=== PATIENT | female | born 1990 | race Caucasian/White ===

== ENCOUNTER → 2018-07-04 | Outpatient (CLI) | payer BC ==
[2018-07-04 12:28] LABS: HCT 36.6 % (34.0-46.0); HGB 12.1 gm/dL (11.4-16.0); MCH 32.3 pg (25.0-35.0); MCV 97.9 fL (80.0-100.0); Mean Platelet Volume 7.1; Platelet Count 349 k/uL (150-450); RBC 3.73 m/uL (3.80-5.40); RDW 13.9 % (11.5-15.5); WBC 14.7 k/uL (3.8-10.6)
== END | disposition home or self-care (01) ==
LOC: LABWHC1 11:28
PROVIDERS: ATTEND Obstetrics & Gynecology
DX: Z34.02 Encounter for supervision of normal first pregnancy, second trimester (principal); Z3A.17 17 weeks gestation of pregnancy
CPT/HCPCS: 36415; 85027; 86762; 86780; 86850; 86900; 86901; 87086; 87340

== ENCOUNTER → 2018-08-07 | Outpatient (CLI) | payer BC | END | disposition home or self-care (01) | LOC: LABWHC1 15:06 | PROVIDERS: ATTEND Obstetrics & Gynecology | DX: Z36.9 Encounter for antenatal screening, unspecified (principal) | CPT/HCPCS: 36415; 82950 ==

== ENCOUNTER 2018-11-10 18:23 | Inpatient (IN) | payer OTHER ==
[2018-11-10] MEDS ORDERED: METHYLERGONOVINE 0.2 MG/ML 1 ML AMP IM PRN (19:57)
[2018-11-10] MEDS ORDERED: LIDOCAINE 0.5% (PF) 5 MG/ML (50 ML SDV) SQ PRN (19:57)
[2018-11-10] MEDS ORDERED: AMPICILLIN 2,000 MG in SODIUM CHLORIDE 0.9% 100 ML IVPB STA (19:57)
[2018-11-10] MEDS ORDERED: TERBUTALINE 1 MG/ML VIAL SQ PRN (19:57)
[2018-11-10] MEDS ORDERED: CARBOPROST TROMETHAMINE 250 MCG/ML 1 ML AMP IM PRN (19:57)
[2018-11-10] MEDS ORDERED: OXYTOCIN 10 UNIT/ML 1 ML VIAL IM PRN (19:57)
[2018-11-10] MEDS ORDERED: BUTORPHANOL 1 MG/ML 1 ML VIAL IV PRN (19:58)
[2018-11-10 20:15] VITALS: BMI 37.5
[2018-11-10] MEDS: LACTATED RINGERS 1,000 ML IV SCH ×2 (20:21→20:52)
[2018-11-10 20:30] LABS: Basophils % (A) 0 %; Eosinophils # (A) 0.1 k/uL (0-0.7); Eosinophils % (A) 1 %; HCT 36.6 % (34.0-46.0); HGB 11.8 gm/dL (11.4-16.0); Lymphocytes # (A) 2.5 k/uL (1.0-4.8); Lymphocytes % (A) 15 %; MCH 31.9 pg (25.0-35.0); MCHC 32.2 g/dL (31.0-37.0); Mean Platelet Volume 7.5; Monocytes # (A) 0.6 k/uL (0-1.0); Monocytes % (A) 4 %; Neutrophils # (A) 12.8 k/uL (1.3-7.7); Neutrophils % (A) 78 %; Platelet Count 372 k/uL (150-450); RDW 14.2 % (11.5-15.5); WBC 16.4 k/uL (3.8-10.6)
[2018-11-10] MEDS ORDERED: ROPIVACAINE 5MG/ML 20ML VIAL ONE (20:47)
[2018-11-10] MEDS ORDERED: SODIUM CHLORIDE 0.9% 100 ML BAG ONE (20:47)
[2018-11-10] MEDS ORDERED: fentaNYL (PF) 50 MCG/ML 5 ML AMP ONE (20:47)
[2018-11-11] MEDS: LACTATED RINGERS 1,000 ML IV SCH ×2 (00:17→05:40)
[2018-11-11] MEDS: AMPICILLIN 1,000 MG in SODIUM CHLORIDE 0.9% 50 ML IVPB SCH ×3 (00:18→07:43)
[2018-11-11] MEDS ORDERED: ROPIVACAINE 100 MG, fentaNYL (PF) 200 MCG in SODIUM CHLORIDE 0.9% 76 ML EPIDURAL ONE (02:21)
[2018-11-11] MEDS: OXYTOCIN 20 UNITS/1000 ML NS 1,000 ML IV SCH ×2 (04:30→20:29)
[2018-11-11] MEDS ORDERED: SIMETHICONE 80 MG CHEWABLE PO PRN (09:08)
[2018-11-11] MEDS ORDERED: diphenhydrAMINE 50 MG CAP PO PRN (09:08)
[2018-11-11] MEDS ORDERED: diphenhydrAMINE 25 MG CAP PO PRN (09:08)
[2018-11-11] MEDS ORDERED: diphenhydrAMINE 50 MG/ML 1 ML VIAL IVP PRN ×2 (09:08)
[2018-11-11] MEDS ORDERED: HYDROCORTISONE 2.5% RECTAL CREAM 30 GM TUBE RECTAL PRN (09:08)
[2018-11-11] MEDS ORDERED: ACETAMINOPHEN TAB 325 MG TAB PO PRN (09:08)
[2018-11-11] MEDS ORDERED: BENZOCAINE/MENTHOL SPRAY 1 GM/SPRAY AEROSOL TOPICAL PRN (09:08)
[2018-11-11] MEDS ORDERED: WITCH HAZEL 1 EACH MED..PAD TOPICAL PRN (09:08)
[2018-11-11] MEDS ORDERED: ZOLPIDEM 5 MG TAB PO PRN (09:08)
[2018-11-11] MEDS ORDERED: LANOLIN CREAM 5 GM TUBE TOPICAL PRN (09:08)
--- NOTE | 2018-11-11 09:08 | P.HPOB ---
History of Present Illness H&P Date: 11/11/18 Chief Complaint: IUP @ 400/7 week, active labor This is a 28yo at 40 0/7 weeks that presented to labor and delivery with complaints of contractions approximately 5 minutes apart. Patient denies vaginal bleeding or loss of fluid. She notes good movement. She is a known patient of Dr. Preciado. It has been receiving routine care since the first trimester. Patient is a known tobacco user and noted to be group beta strep positive on screening at 36 weeks. On blood work a blood type of A+, rubella immune, RPR nonreactive, hepatitis B surface antigen negative, drug screen on 04/18 was positive for THC. As stated above group beta strep was positive on 10/10/2018. Review of Systems Constitutional: Denies chills, Denies fatigue, Denies fever Cardiovascular: Reports leg edema Respiratory: Denies cough, Denies dyspnea Gastrointestinal: Denies diarrhea, Denies nausea, Denies vomiting Genitourinary: Reports Past Medical History Past Medical History: No Reported History History of Any Multi-Drug Resistant Organisms: None Reported Past Surgical History: Tonsillectomy Additional Past Surgical History / Comment(s): [place] tooth extraction Past Anesthesia/Blood Transfusion Reactions: No Reported Reaction Past Psychological History: No Psychological Hx Reported Smoking Status: Current every day smoker Past Alcohol Use History: None Reported Past Drug Use History: Marijuana Additional Drug Use History / Comment(s): THC use during - Past Family History Mother Family Medical History: No Reported History Medications and Allergies Home Medications Medication Instructions Recorded Confirmed Type Pnv,Calcium 72/Iron/Folic Acid 1 each PO DAILY 11/10/18 11/10/18 History [ Plus Tablet] Allergies Allergy/AdvReac Type Severity Reaction Status Date / Time No Known Allergies Allergy Verified 11/10/18 18:32 Exam Osteopathic Statement: *. No significant issues noted on an osteopathic structural exam other than those noted in the History and Physical/Consult. Vital Signs Temp Pulse Resp BP Pulse Ox 11/10/18 20:08 98.1 F 83 16 131/82 99 11/10/18 20:00 98.1 F 83 16 131/82 99 11/10/18 18:33 97.6 F 78 16 124/70 Intake and Output 11/10/18 11/11/18 11/11/18 22:59 06:59 14:59 Intake Total 1000 1000 Balance 1000 1000 Intake: Intake, IV Titration 1000 1000 Amount Lactated Ringers 1,000 ml 1000 1000 @ 125 mls/hr IV .Q8H [facility] Rx#:[id number] Other: # Voids 1 Weight 96.162 kg Targeted physical exam was performed in general this is a well-nourished well- developed female in no acute distress. She notes nonlabored breathing and lungs are clear to auscultation bilaterally, heart regular rate and rhythm, lower extremity edema is noted, on initial cervical exam she was /-2 amniotomy was performed and clear fluid was obtained without difficulty. heart tones at that time were reassuring with moderate variability. Results Result Diagrams: 11/10/18 20:20 Abnormal Lab Results - Last 24 Hours (Table) 11/10/18 Range/Units 20:20 WBC 16.4 H (3.8-10.6) k/uL RBC 3.70 L (3.80-5.40) m/uL Neutrophils # 12.8 H (1.3-7.7) k/uL Assessment and Plan (1) Term Current Visit: Yes Status: Acute Code(s): Z34.80 - ENCOUNTER FOR SUPRVSN OF NORMAL , UNSP TRIMESTER SNOMED Code(s): 21927914 (2) Positive GBS test Current Visit: Yes Status: Acute Code(s): B95.1 - STREPTOCOCCUS, GROUP B, CAUSING DISEASES CLASSD ELSWHR SNOMED Code(s): 6386799769641 (3) Marijuana abuse Current Visit: Yes Status: Acute Code(s): F12.10 - CANNABIS ABUSE, UNCOMPLICATED SNOMED Code(s): 71006293 (4) Tobacco abuse Current Visit: Yes Status: Acute Code(s): Z72.0 - TOBACCO USE SNOMED Code( s): 758677675 Plan: Patient minutes labor and delivery for expectant management, IV antibiotics are used given her age group beta strep positive status. Anticipate spontaneous vaginal delivery.
--- NOTE | 2018-11-11 09:11 | P.PROBDLV ---
Vaginal Delivery Note - . Vaginal Delivery Note: This is a 28-year-old 1 para 0 at 40-0/7 weeks with an estimated due date of 112 that presented to labor and delivery with complaints of painful contractions. Patient was noted to be 4 cm 80 and -2 station. Patient was requesting epidural at the time. Patient was admitted to labor and delivery IV antibiotics were given for her group beta strep positive status. Patient progressed through labor eventually getting an epidural, placed by anesthesia without difficulty. Artificial rupture of membranes was performed at 342 clear fluid was obtained. Patient progressed through labor becoming complete and began pushing. She had a normal spontaneous vaginal delivery of a viable female infant at 854, weight of 7 lbs. 5 oz., Apgars of 9 and 9 at one and 5 minutes respectively. After a two-minute delayed the umbilical cord was doubly clamped and cut and the infant was handed off to mom. The placenta was delivered spontaneously intact with a three-vessel cord being noted. On inspection the patient's vaginal vault bilateral labial lacerations that were hemostatic were noted. No perineal lacerations were noted. The patient's bladder was drained with a red rubber catheter for approximately 100 mL of clear yellow urine. The uterus was noted to be firm and below the umbilicus at this time. Estimated blood loss 300 mL. Patient and tolerated delivery well and are resting comfortably.
[2018-11-11] MEDS ORDERED: OXYTOCIN 20 UNITS/1000 ML NS 1,000 ML IV SCH (09:15)
[2018-11-11] MEDS: IBUPROFEN 600 MG TAB PO PRN ×2 (10:56→23:21)
[2018-11-11] MEDS: SENNOSIDES-DOCUSATE SODIUM 1 EACH TAB PO SCH (19:35)
[2018-11-11] MEDS: PRENATAL VIT-IRON-FOLIC ACID 1 EACH CAP PO SCH (19:38)
[2018-11-11 20:18] VITALS: RESP 16
[2018-11-12 07:04] LABS: Basophils % (A) 0 %; Eosinophils # (A) 0.1 k/uL (0-0.7); Eosinophils % (A) 1 %; HCT 30.8 % (34.0-46.0); HGB 10.6 gm/dL (11.4-16.0); Lymphocytes # (A) 2.4 k/uL (1.0-4.8); Lymphocytes % (A) 17 %; MCH 33.6 pg (25.0-35.0); MCHC 34.3 g/dL (31.0-37.0); Mean Platelet Volume 8.1; Monocytes # (A) 0.6 k/uL (0-1.0); Monocytes % (A) 4 %; Neutrophils # (A) 11.3 k/uL (1.3-7.7); Neutrophils % (A) 77 %; Platelet Count 273 k/uL (150-450); RBC 3.15 m/uL (3.80-5.40); RDW 14.2 % (11.5-15.5); WBC 14.8 k/uL (3.8-10.6)
[2018-11-12 07:33] VITALS: BP 123/75; PULSE 70; TEMP 97.7
[2018-11-12] MEDS: SENNOSIDES-DOCUSATE SODIUM 1 EACH TAB PO SCH (08:48)
[2018-11-12] MEDS: PRENATAL VIT-IRON-FOLIC ACID 1 EACH CAP PO SCH (08:49)
--- NOTE | 2018-11-12 09:38 | P.DS ---
Providers Date of admission: 11/10/18 19:50 Expected date of discharge: 11/12/18 Attending physician: Rea Preciado Primary care physician: Stated None - Discharge Diagnosis(es) (1) Term Current Visit: Yes Status: Acute (2) Positive GBS test Current Visit: Yes Status: Acute (3) Marijuana abuse Current Visit: Yes Status: Acute (4) Tobacco abuse Current Visit: Yes Status: Acute Hospital Course: This is a pleasant 28-year-old 1 para 0 at 40-0/7 weeks that presented to labor and delivery in active labor. Patient noted painful contractions and was 4/80/-2 upon admission. Patient was uncomfortable requesting an epidural. Patient progressed through labor eventually amniotomy was performed and clear fluid was obtained. Patient progressed through labor began pushing and had a normal spontaneous vaginal delivery at 854, weight of 7 lbs. 5 oz. with Apgars of 9 and 9 at one and 5 minutes respectively. Patient's course has been uneventful. She is ambulating and voiding without difficulty on this postop day #1 and wishes discharge home. Patient Condition at Discharge: Good Plan - Discharge Summary New Discharge Prescriptions: No Action Pnv,Calcium 72/Iron/Folic Acid [ Plus Tablet] 1 each PO DAILY Discharge Medication List Pnv,Calcium 72/Iron/Folic Acid [ Plus Tablet] 1 each PO DAILY 11/10/18 [ History] Follow up Appointment(s)/Referral(s): Rea Preciado MD [STAFF PHYSICIAN] - 6 Weeks Patient Instructions/Handouts: Vaginal Delivery (DC), Vaginal Delivery (GEN) Discharge Disposition: HOME SELF-CARE
== END 2018-11-12 11:34 | disposition home or self-care (01) | DRG 807 ==
LOC: FBPOP 18:23 → 4FBP 19:50
PROVIDERS: ADMIT Obstetrics & Gynecology Obstetrics; ATTEND Obstetrics & Gynecology
PROC: 00HU33Z Insertion of Infusion Device into Spinal Canal, Percutaneous Approach (ICD-10-PCS; 2018-11-10)
PROC: 3E0R3BZ Introduction of Anesthetic Agent into Spinal Canal, Percutaneous Approach (ICD-10-PCS; 2018-11-10)
PROC: 10E0XZZ Delivery of Products of Conception, External Approach (ICD-10-PCS; principal; 2018-11-11)
PROC: 0HQ9XZZ Repair Perineum Skin, External Approach (ICD-10-PCS; 2018-11-11)
DX: O99.824 Streptococcus B carrier state complicating childbirth (principal); Z37.0 Single live birth; O70.0 First degree perineal laceration during delivery; O99.334 Smoking (tobacco) complicating childbirth; F17.200 Nicotine dependence, unspecified, uncomplicated; O99.321 Drug use complicating pregnancy, first trimester; F12.90 Cannabis use, unspecified, uncomplicated; Z3A.40 40 weeks gestation of pregnancy; Z79.899 Other long term (current) drug therapy
CPT/HCPCS: 59025; 85025; 86850; 86900; 86901; 99213

== ENCOUNTER 2021-09-01 06:52 | Emergency (ER) | payer OTHER ==
[2021-09-01] MEDS ORDERED: ACETAMINOPHEN TAB 500 MG TAB PO STA (07:20)
[2021-09-01] MEDS ORDERED: SODIUM CHLORIDE 0.9% 1,000 ML IV STA ×2 (07:22)
[2021-09-01] MEDS ORDERED: IBUPROFEN 600 MG TAB PO STA (07:25)
[2021-09-01] MEDS ORDERED: MORPHINE SULFATE 4 MG/ML SYRINGE IVP STA (07:25)
--- NOTE | 2021-09-01 07:27 | ED ---
General Adult HPI - General Chief complaint: Abdominal Pain Stated complaint: Abdominal and lower back pain Time Seen by Provider: 09/01/21 07:12 Source: patient, RN notes reviewed Mode of arrival: ambulatory - History of Present Illness Initial comments: 30-year-old female presents to the emergency room for a chief complaint of abdominal pain. Patient states 2-3 days ago she started to have lower back pain that radiates around to her lower abdomen. Patient states she is having pain with urination. She is prone to UTIs. Patient states she has had chills on and off but has not checked her temperature. She denies upper respiratory symptoms.Patient has no other complaints at this time including shortness of breath, chest pain, nausea or vomiting, headache, or visual changes. - Related Data Previous Rx's Medication Instructions Recorded Ondansetron [Zofran ODT] 4 mg PO Q8HR PRN #15 tab 09/01/21 Sulfamethox-Tmp 800-160Mg [Bactrim 1 tab PO Q12HR #28 tab 09/01/21 DS 800-160 mg] Allergies Allergy/AdvReac Type Severity Reaction Status Date / Time No Known Allergies Allergy Verified 09/01/21 07:34 Review of Systems ROS Statement: Those systems with pertinent positive or pertinent negative responses have been documented in the HPI. ROS Other: All systems not noted in ROS Statement are negative. Past Medical History Past Medical History: No Reported History History of Any Multi-Drug Resistant Organisms: None Reported Past Surgical History: Tonsillectomy Additional Past Surgical History / Comment(s): [place] tooth extraction Past Anesthesia/Blood Transfusion Reactions: No Reported Reaction Past Psychological History: No Psychological Hx Reported Smoking Status: Current every day smoker Past Alcohol Use History: Occasional Past Drug Use History: Marijuana - Past Family History Mother Family Medical History: No Reported History General Exam General appearance: alert, in no apparent distress Head exam: Present: atraumatic Eye exam: Present: normal appearance, PERRL, EOMI. Absent: scleral icterus, conjunctival injection ENT exam: Present: normal exam, mucous membranes moist Neck exam: Present: normal inspection, full ROM. Absent: tenderness Respiratory exam: Present: normal lung sounds bilaterally. Absent: respiratory distress, wheezes Cardiovascular Exam: Present: regular rate, normal rhythm, normal heart sounds GI/Abdominal exam: Present: soft, normal bowel sounds. Absent: distended, tenderness Back exam: Present: CVA tenderness (R). Absent: CVA tenderness (L), vertebral tenderness Course Vital Signs 09/01/21 06:55 Temperature 101.2 F H Pulse Rate 150 H Respiratory 20 Rate Blood Pressure 126/78 O2 Sat by Pulse 99 Oximetry Medical Decision Making - Medical Decision Making Patient presents with a fever of 101. Heart rate was initially recorded as 150 however I checked her heart rate is sooner she was in the room and is in the 120s. She was given Motrin and Tylenol and her heart rate improved to 89. Patient does have some right CVA tenderness. No significant abdominal tenderness. CBC does show leukocytosis of 12.6. CMP is unremarkable. Lactic acid is normal. Urinalysis does show evidence of urinary tract infection, suspect pyelonephritis. CT was obtained to rule out septic stone. No renal calculi seen bilaterally. There is right perinephric fat stranding which I suspect is related to reflux with pyelonephritis clinically. Patient was treated with 2 L of normal saline and 2 g of Rocephin. Discussed inpatient versus outpatient management with patient. Patient prefers to go home. Pain is controlled. Tolerating oral intake. At this time we can discharge her home with Bactrim for 14 days and Zofran. Discussed strict return parameters with her. She is aware that if she is getting worse, or is unable to keep down fluids or antibiotics she needs to immediately return to the emergency room. - Lab Data Result diagrams: 09/01/21 07:42 09/01/21 07:42 Lab Results 09/01/21 09/01/21 09/01/21 Range/Units 07:42 07:42 07:42 WBC 12.6 H (3.8-10.6) k/uL RBC 4.69 (3.80-5.40) m/uL Hgb 15.2 (11.4-16.0) gm/dL Hct 44.8 (34.0-46.0) % MCV 95.3 (80.0-100.0) fL MCH 32.3 (25.0-35.0) pg MCHC 33.9 (31.0-37.0) g/dL RDW 13.1 (11.5-15.5) % Plt Count 337 (150-450) k/uL MPV 7.8 Neutrophils % 81 % Lymphocytes % 11 % Monocytes % 6 % Eosinophils % 1 % Basophils % 0 % Neutrophils # 10.2 H (1.3-7.7) k/uL Lymphocytes # 1.4 (1.0-4.8) k/uL Monocytes # 0.7 (0-1.0) k/uL Eosinophils # 0.1 (0-0.7) k/uL Basophils # 0.1 (0-0.2) k/uL Sodium 133 L (137-145) mmol/L Potassium 4.1 (3.5-5.1) mmol/L Chloride 101 (98-107) mmol/L Carbon Dioxide 20 L (22-30) mmol/L Anion Gap 12 mmol/L BUN 5 L (7-17) mg/dL Creatinine 0.75 (0.52-1.04) mg/dL Est GFR (CKD-EPI)AfAm >90 (>60 ml/min/1.73 sqM) Est GFR (CKD-EPI)NonAf >90 (>60 ml/min/1.73 sqM) Glucose 122 H (74-99) mg/dL Plasma Lactic Acid Lucas (0.7-2.0) mmol/L Calcium 9.7 (8.4-10.2) mg/dL Total Bilirubin 0.7 (0.2-1.3) mg/dL AST 20 (14-36) U/L ALT 15 (4-34) U/L Alkaline Phosphatase 147 H (38-126) U/L Total Protein 8.0 (6.3-8.2) g/dL Albumin 4.2 (3.5-5.0) g/dL Urine Color Yellow Urine Appearance Turbid H (Clear) Urine pH 6.0 (5.0-8.0) Ur Specific [place] 1.016 (1.001-1.035) Urine Protein 2+ H (Negative) Urine Glucose (UA) Negative (Negative) Urine Ketones Negative (Negative) Urine Blood Moderate H (Negative) Urine Nitrite Negative (Negative) Urine Bilirubin Negative (Negative) Urine Urobilinogen <2.0 (<2.0) mg/dL Ur Leukocyte Esterase Large H (Negative) Urine RBC 49 H (0-5) /hpf Urine WBC >182 H (0-5) /hpf Urine WBC Clumps Many H (None) /hpf Ur Squamous Epith Cells 18 H (0-4) /hpf Urine Bacteria Few H (None) /hpf Urine Mucus Many H (None) /hpf Urine HCG, Qual (Not Detectd) Coronavirus (PCR) (Not Detectd) 09/01/21 09/01/21 09/01/21 Range/Units 07:42 07:42 07:42 WBC (3.8-10.6) k/uL RBC (3.80-5.40) m/uL Hgb (11.4-16.0) gm/dL Hct (34.0-46.0) % MCV (80.0-100.0) fL MCH (25.0-35.0) pg MCHC (31.0-37.0) g/dL RDW (11.5-15.5) % Plt Count (150-450) k/uL MPV Neutrophils % % Lymphocytes % % Monocytes % % Eosinophils % % Basophils % % Neutrophils # (1.3-7.7) k/uL Lymphocytes # (1.0-4.8) k/uL Monocytes # (0-1.0) k/uL Eosinophils # (0-0.7) k/uL Basophils # (0-0.2) k/uL Sodium (137-145) mmol/L Potassium (3.5-5.1) mmol/L Chloride (98-107) mmol/L Carbon Dioxide (22-30) mmol/L Anion Gap mmol/L BUN (7-17) mg/dL Creatinine (0.52-1.04) mg/dL Est GFR (CKD-EPI)AfAm (>60 ml/min/1.73 sqM) Est GFR (CKD-EPI)NonAf (>60 ml/min/1.73 sqM) Glucose (74-99) mg/dL Plasma Lactic Acid Lucas 1.1 (0.7-2.0) mmol/L Calcium (8.4-10.2) mg/dL Total Bilirubin (0.2-1.3) mg/dL AST (14-36) U/L ALT (4-34) U/L Alkaline Phosphatase (38-126) U/L Total Protein (6.3-8.2) g/dL Albumin (3.5-5.0) g/dL Urine Color Urine Appearance (Clear) Urine pH (5.0-8.0) Ur Specific [place] (1.001-1.035) Urine Protein (Negative) Urine Glucose (UA) (Negative) Urine Ketones (Negative) Urine Blood (Negative) Urine Nitrite (Negative) Urine Bilirubin (Negative) Urine Urobilinogen (<2.0) mg/dL Ur Leukocyte Esterase (Negative) Urine RBC (0-5) /hpf Urine WBC (0-5) /hpf Urine WBC Clumps (None) /hpf Ur Squamous Epith Cells (0-4) /hpf Urine Bacteria (None) /hpf Urine Mucus (None) /hpf Urine HCG, Qual Not Detected (Not Detectd) Coronavirus (PCR) Not Detected (Not Detectd) Disposition Clinical Impression: Pyelonephritis Disposition: HOME SELF-CARE Condition: Good Instructions (If sedation given, give patient instructions): Kidney Infection (ED) Additional Instructions: Please take antibiotic as directed. Take Zofran as needed for nausea. If you're having worsening symptoms or you are not able to tolerate drinking fluids or keeping down your antibiotics you need to return immediately to the emergency room. Prescriptions: Sulfamethox-Tmp 800-160Mg [Bactrim DS 800-160 mg] 1 tab PO Q12HR #28 tab Ondansetron [Zofran ODT] 4 mg PO Q8HR PRN #15 tab PRN Reason: Nausea Is patient prescribed a controlled substance at d/c from ED?: No Referrals: Felix Victor MD [REFERRING] - 1-2 days Time of Disposition: 10:20
[2021-09-01 08:37] LABS: Appearance,Urine Turbid (Clear); Bacteria,Urine Few /hpf; Bilirubin,Urine Negative (Negative); Blood,Urine Moderate (Negative); Color,Urine Yellow; Glucose,Urine (UA) Negative (Negative); Ketones,Urine Negative (Negative); Leukocyte Esterase,Urine Large (Negative); Mucus,Urine Many /hpf; Nitrite,Urine Negative (Negative); Protein,Urine 2+ (Negative); RBC,Urine 49 /hpf (0-5); Specific Gravity,Urine 1.016 (1.001-1.035); Squamous Epithelial Cell,Urine 18 /hpf (0-4); Urobilinogen,Urine <2.0 mg/dL (<2.0); WBC,Urine >182 /hpf (0-5)
[2021-09-01 08:50] LABS: Basophils # (A) 0.1 k/uL (0-0.2); Basophils % (A) 0 %; Eosinophils # (A) 0.1 k/uL (0-0.7); Eosinophils % (A) 1 %; HCT 44.8 % (34.0-46.0); HGB 15.2 gm/dL (11.4-16.0); Lymphocytes # (A) 1.4 k/uL (1.0-4.8); Lymphocytes % (A) 11 %; MCH 32.3 pg (25.0-35.0); MCHC 33.9 g/dL (31.0-37.0); MCV 95.3 fL (80.0-100.0); Mean Platelet Volume 7.8; Monocytes # (A) 0.7 k/uL (0-1.0); Monocytes % (A) 6 %; Neutrophils # (A) 10.2 k/uL (1.3-7.7); Neutrophils % (A) 81 %; Platelet Count 337 k/uL (150-450); RBC 4.69 m/uL (3.80-5.40); RDW 13.1 % (11.5-15.5); WBC 12.6 k/uL (3.8-10.6)
[2021-09-01] MEDS ORDERED: cefTRIAXone IN SWFI 1,000 MG/10 ML SYRINGE IVP STA (09:14)
[2021-09-01 09:16] LABS: ALT 15 U/L (4-34); AST 20 U/L (14-36); African American GFR (CKD) >90 (>60 ml/min/1.73 sqM); Albumin 4.2 g/dL (3.5-5.0); Alkaline Phosphatase 147 U/L (38-126); Anion Gap 12 mmol/L; Blood Urea Nitrogen 5 mg/dL (7-17); Calcium 9.7 mg/dL (8.4-10.2); Carbon Dioxide 20 mmol/L (22-30); Chloride 101 mmol/L (98-107); Glucose 122 mg/dL (74-99); Non-African American GFR(CKD) >90 (>60 ml/min/1.73 sqM); Potassium 4.1 mmol/L (3.5-5.1); Sodium 133 mmol/L (137-145); Total Bilirubin 0.7 mg/dL (0.2-1.3)
--- NOTE | 2021-09-01 09:44 | CT ---
EXAMINATION TYPE: CT abdomen pelvis wo con DATE OF EXAM: 09/01/2021 HISTORY: Right flank pain CT DLP: 665.2 mGycm. Automated Exposure Control for Dose Reduction was Utilized. TECHNIQUE: CT scan of the abdomen and pelvis is performed without oral or IV contrast. COMPARISON: NONE FINDINGS: Within the limitations of a non-contrast study, the following observations are made. LUNG BASES: Focal linear scarring in the lingula axial images 8 through 10. LIVER/GB: Some heterogeneity in the liver. No suspicious focal mass or ductal dilatation. PANCREAS: No significant abnormality is seen. SPLEEN: No significant abnormality is seen. ADRENALS: No significant abnormality is seen. KIDNEYS: No nephrolithiasis bilaterally. No left-sided hydronephrosis. Mild to moderate right-sided p erinephric fat stranding and mild to minimal asymmetric right-sided hydronephrosis. No obstructing ca lculus clearly seen. No intraluminal calculus in the bladder. BOWEL: Prominent fluid filled small bowel loop right lower quadrant. No greater than 3.0 cm dilatatio n. No suspicious small or large bowel dilatation. Terminal ileum appears within normal limits. Mild t o moderate fecal prominence in the right and transverse colon. GENITAL ORGANS: Anteverted uterus. Ovaries symmetric and normal in size axial image 112. LYMPH NODES: No greater than 1cm abdominal or pelvic lymph nodes are appreciated. OSSEOUS STRUCTURES: Slight scoliotic curvature or positioning. Some facet arthropathy lower lumbar sp ine. Mild to moderate acetabular spurring and axial joint space loss in both hips. OTHER: No significant additional abnormality is seen. IMPRESSION: 1. Overall nonspecific but favor a nonobstructive bowel gas pattern. Mild to moderate proximal coloni c fecal stasis. 2. No renal calculi seen bilaterally. Asymmetric mild to moderate right perinephric fat stranding and mild to minimal right-sided hydronephrosis could reflect product of recently passed kidney stone. Re flux with pyelonephritis would be in differential. Correlate clinically.
[2021-09-01 10:45] VITALS: BP 111/73; PULSE 89; RESP 18; TEMP 97.6
== END 2021-09-01 10:41 | disposition home or self-care (01) ==
LOC: EC 06:52
DX: N12 Tubulo-interstitial nephritis, not specified as acute or chronic (principal); Z20.822 Contact with and (suspected) exposure to COVID-19; F17.200 Nicotine dependence, unspecified, uncomplicated; F12.90 Cannabis use, unspecified, uncomplicated
CPT/HCPCS: 96374 ×2; 96375 ×2; 96361 ×2; 99284 ×2; 36415; 80053; 83605; 85025; 81001; 81025; 87040; 87086; 87077; 87186; 87635; 74176; J2270; J0696

== ENCOUNTER 2021-09-01 23:59 | Observation (INO) | payer OTHER ==
[2021-09-02] MEDS ORDERED: SODIUM CHLORIDE 0.9% 2,000 ML IV STA (01:24)
[2021-09-02] MEDS ORDERED: ONDANSETRON 4 MG/2 ML VIAL IVP STA (01:24)
[2021-09-02 02:02] LABS: Basophils # (A) 0.1 k/uL (0-0.2); Basophils % (A) 1 %; Eosinophils # (A) 0.1 k/uL (0-0.7); Eosinophils % (A) 1 %; HCT 39.8 % (34.0-46.0); HGB 13.4 gm/dL (11.4-16.0); Lymphocytes # (A) 1.9 k/uL (1.0-4.8); Lymphocytes % (A) 15 %; MCH 31.8 pg (25.0-35.0); MCHC 33.7 g/dL (31.0-37.0); MCV 94.3 fL (80.0-100.0); Mean Platelet Volume 7.6; Monocytes # (A) 0.9 k/uL (0-1.0); Monocytes % (A) 7 %; Neutrophils # (A) 9.9 k/uL (1.3-7.7); Neutrophils % (A) 76 %; Platelet Count 320 k/uL (150-450); RBC 4.22 m/uL (3.80-5.40); RDW 13.6 % (11.5-15.5); WBC 13.1 k/uL (3.8-10.6)
--- NOTE | 2021-09-02 02:07 | ED ---
Abdominal Pain HPI - General Chief Complaint: Abdominal Pain Stated Complaint: Revisit kidney pain Time Seen by Provider: 09/02/21 01:23 Source: patient, RN notes reviewed Mode of arrival: ambulatory Limitations: no limitations - History of Present Illness Initial Comments: This a 30-year-old female presents emergency Department with chief complaint of right flank pain. Patient states she was seen here yesterday morning diagnosed with a kidney infection. Patient was sent home with antiemetics states she cannot tolerate oral intake she's been vomiting, worsening pain. Patient's had urinary symptoms for several days but was not improving which brought her to emergency department. Patient did have prior CAT scan. Patient states the pain is radiating up into her shoulder, across her abdomen. - Related Data Previous Rx's Medication Instructions Recorded Ondansetron [Zofran ODT] 4 mg PO Q8HR PRN #15 tab 09/01/21 Sulfamethox-Tmp 800-160Mg [Bactrim 1 tab PO Q12HR #28 tab 09/01/21 DS 800-160 mg] Allergies Allergy/AdvReac Type Severity Reaction Status Date / Time No Known Allergies Allergy Verified 09/02/21 00:06 Review of Systems ROS Statement: Those systems with pertinent positive or pertinent negative responses have been documented in the HPI. ROS Other: All systems not noted in ROS Statement are negative. Past Medical History Past Medical History: No Reported History History of Any Multi-Drug Resistant Organisms: None Reported Past Surgical History: Tonsillectomy Additional Past Surgical History / Comment(s): [place] tooth extraction Past Anesthesia/Blood Transfusion Reactions: No Reported Reaction Past Psychological History: No Psychological Hx Reported Smoking Status: Current every day smoker Past Alcohol Use History: Occasional Past Drug Use History: Marijuana - Past Family History Mother Family Medical History: No Reported History General Exam Limitations: no limitations General appearance: alert, in no apparent distress Head exam: Present: atraumatic, normocephalic, normal inspection Eye exam: Present: normal appearance, PERRL, EOMI. Absent: scleral icterus, conjunctival injection, periorbital swelling ENT exam: Present: normal exam, mucous membranes moist Neck exam: Present: normal inspection, full ROM. Absent: tenderness, meningismus, lymphadenopathy Respiratory exam: Present: normal lung sounds bilaterally. Absent: respiratory distress, wheezes, rales, rhonchi, stridor Cardiovascular Exam: Present: regular rate, normal rhythm, normal heart sounds. Absent: systolic murmur, diastolic murmur, rubs, gallop, clicks GI/Abdominal exam: Present: soft, tenderness, normal bowel sounds. Absent: distended, guarding, rebound, rigid Back exam: Present: CVA tenderness (R). Absent: CVA tenderness (L) Neurological exam: Present: alert, oriented X3 Skin exam: Present: warm, dry, intact, normal color. Absent: rash Course Vital Signs 09/02/21 00:02 Temperature 99.0 F Pulse Rate 105 H Respiratory 20 Rate Blood Pressure 126/70 O2 Sat by Pulse 99 Oximetry Medical Decision Making - Medical Decision Making 22-year-old female presented for right flank pain. Patient has acute pyelonephritis. Patient did prior CT which was abnormal. Patient is unable tolerate her oral antibiotics will be admitted for IV antibiotics, IV hydration, antiemetics, pain control. - Lab Data Result diagrams: 09/02/21 01:43 09/02/21 01:43 Lab Results 09/02/21 09/02/21 09/02/21 Range/Units 01:43 01:43 01:43 WBC 13.1 H (3.8-10.6) k/uL RBC 4.22 (3.80-5.40) m/uL Hgb 13.4 (11.4-16.0) gm/dL Hct 39.8 (34.0-46.0) % MCV 94.3 (80.0-100.0) fL MCH 31.8 (25.0-35.0) pg MCHC 33.7 (31.0-37.0) g/dL RDW 13.6 (11.5-15.5) % Plt Count 320 (150-450) k/uL MPV 7.6 Neutrophils % 76 % Lymphocytes % 15 % Monocytes % 7 % Eosinophils % 1 % Basophils % 1 % Neutrophils # 9.9 H (1.3-7.7) k/uL Lymphocytes # 1.9 (1.0-4.8) k/uL Monocytes # 0.9 (0-1.0) k/uL Eosinophils # 0.1 (0-0.7) k/uL Basophils # 0.1 (0-0.2) k/uL Sodium 131 L (137-145) mmol/L Potassium 4.1 (3.5-5.1) mmol/L Chloride 104 (98-107) mmol/L Carbon Dioxide 20 L (22-30) mmol/L Anion Gap 7 mmol/L BUN 5 L (7-17) mg/dL Creatinine 0.70 (0.52-1.04) mg/dL Est GFR (CKD-EPI)AfAm >90 (>60 ml/min/1.73 sqM) Est GFR (CKD-EPI)NonAf >90 (>60 ml/min/1.73 sqM) Glucose 117 H (74-99) mg/dL Plasma Lactic Acid Lucas (0.7-2.0) mmol/L Calcium 8.9 (8.4-10.2) mg/dL Total Bilirubin 0.3 (0.2-1.3) mg/dL AST 20 (14-36) U/L ALT 15 (4-34) U/L Alkaline Phosphatase 130 H (38-126) U/L Total Protein 6.9 (6.3-8.2) g/dL Albumin 3.6 (3.5-5.0) g/dL Lipase 42 (23-300) U/L Urine Color Yellow Urine Appearance Cloudy H (Clear) Urine pH 8.0 (5.0-8.0) Ur Specific [place] 1.013 (1.001-1.035) Urine Protein 1+ H (Negative) Urine Glucose (UA) Negative (Negative) Urine Ketones Negative (Negative) Urine Blood Trace H (Negative) Urine Nitrite Negative (Negative) Urine Bilirubin Negative (Negative) Urine Urobilinogen <2.0 (<2.0) mg/dL Ur Leukocyte Esterase Large H (Negative) Urine RBC 9 H (0-5) /hpf Urine WBC 133 H (0-5) /hpf Ur Squamous Epith Cells 45 H (0-4) /hpf Urine Bacteria Moderate H (None) /hpf Urine Mucus Rare H (None) /hpf Urine HCG, Qual (Not Detectd) 09/02/21 09/02/21 Range/Units 01:43 01:43 WBC (3.8-10.6) k/uL RBC (3.80-5.40) m/uL Hgb (11.4-16.0) gm/dL Hct (34.0-46.0) % MCV (80.0-100.0) fL MCH (25.0-35.0) pg MCHC (31.0-37.0) g/dL RDW (11.5-15.5) % Plt Count (150-450) k/uL MPV Neutrophils % % Lymphocytes % % Monocytes % % Eosinophils % % Basophils % % Neutrophils # (1.3-7.7) k/uL Lymphocytes # (1.0-4.8) k/uL Monocytes # (0-1.0) k/uL Eosinophils # (0-0.7) k/uL Basophils # (0-0.2) k/uL Sodium (137-145) mmol/L Potassium (3.5-5.1) mmol/L Chloride (98-107) mmol/L Carbon Dioxide (22-30) mmol/L Anion Gap mmol/L BUN (7-17) mg/dL Creatinine (0.52-1.04) mg/dL Est GFR (CKD-EPI)AfAm (>60 ml/min/1.73 sqM) Est GFR (CKD-EPI)NonAf (>60 ml/min/1.73 sqM) Glucose (74-99) mg/dL Plasma Lactic Acid Lucas 1.2 (0.7-2.0) mmol/L Calcium (8.4-10.2) mg/dL Total Bilirubin (0.2-1.3) mg/dL AST (14-36) U/L ALT (4-34) U/L Alkaline Phosphatase (38-126) U/L Total Protein (6.3-8.2) g/dL Albumin (3.5-5.0) g/dL Lipase (23-300) U/L Urine Color Urine Appearance (Clear) Urine pH (5.0-8.0) Ur Specific [place] (1.001-1.035) Urine Protein (Negative) Urine Glucose (UA) (Negative) Urine Ketones (Negative) Urine Blood (Negative) Urine Nitrite (Negative) Urine Bilirubin (Negative) Urine Urobilinogen (<2.0) mg/dL Ur Leukocyte Esterase (Negative) Urine RBC (0-5) /hpf Urine WBC (0-5) /hpf Ur Squamous Epith Cells (0-4) /hpf Urine Bacteria (None) /hpf Urine Mucus (None) /hpf Urine HCG, Qual Not Detected (Not Detectd) Disposition Clinical Impression: Pyelonephritis, Nausea & vomiting Disposition: ADMITTED IP TO THIS HOSP Condition: Fair Referrals: Felix Victor MD [Primary Care Provider] - 1-2 days
[2021-09-02 02:09] LABS: Appearance,Urine Cloudy (Clear); Bacteria,Urine Moderate /hpf; Bilirubin,Urine Negative (Negative); Blood,Urine Trace (Negative); Color,Urine Yellow; Glucose,Urine (UA) Negative (Negative); Ketones,Urine Negative (Negative); Leukocyte Esterase,Urine Large (Negative); Mucus,Urine Rare /hpf; Nitrite,Urine Negative (Negative); Protein,Urine 1+ (Negative); RBC,Urine 9 /hpf (0-5); Specific Gravity,Urine 1.013 (1.001-1.035); Squamous Epithelial Cell,Urine 45 /hpf (0-4); Urobilinogen,Urine <2.0 mg/dL (<2.0); WBC,Urine 133 /hpf (0-5)
[2021-09-02] MEDS ORDERED: HYDROmorphone 1 MG/ML 1 ML SYRINGE IVP STA (02:17)
[2021-09-02 02:19] LABS: ALT 15 U/L (4-34); AST 20 U/L (14-36); African American GFR (CKD) >90 (>60 ml/min/1.73 sqM); Albumin 3.6 g/dL (3.5-5.0); Alkaline Phosphatase 130 U/L (38-126); Anion Gap 7 mmol/L; Blood Urea Nitrogen 5 mg/dL (7-17); Calcium 8.9 mg/dL (8.4-10.2); Carbon Dioxide 20 mmol/L (22-30); Chloride 104 mmol/L (98-107); Glucose 117 mg/dL (74-99); Lipase 42 U/L (23-300); Non-African American GFR(CKD) >90 (>60 ml/min/1.73 sqM); Potassium 4.1 mmol/L (3.5-5.1); Sodium 131 mmol/L (137-145); Total Bilirubin 0.3 mg/dL (0.2-1.3); Total Protein 6.9 g/dL (6.3-8.2)
[2021-09-02] MEDS ORDERED: NALOXONE 0.4 MG/ML 1 ML VIAL IV PRN (02:42)
[2021-09-02] MEDS ORDERED: ACETAMINOPHEN TAB 325 MG TAB PO PRN (02:42)
[2021-09-02] MEDS ORDERED: HYDROmorphone 0.5 MG/0.5 ML SYRINGE IVP PRN (02:42)
[2021-09-02] MEDS ORDERED: ONDANSETRON 4 MG/2 ML VIAL IVP PRN (02:42)
[2021-09-02] MEDS: SODIUM CHLORIDE 0.9% 1,000 ML IV SCH ×3 (03:15→17:42)
[2021-09-02] MEDS: HYDROmorphone 1 MG/ML 1 ML SYRINGE IVP PRN ×4 (06:03→17:41)
[2021-09-02] MEDS: PANTOPRAZOLE 40 MG/10 ML VIAL IV SCH (09:24)
[2021-09-02] MEDS: KETOROLAC 15 MG/ML 1 ML VIAL IVP PRN (10:50)
--- NOTE | 2021-09-02 16:09 | P.HPIM ---
History of Present Illness Patient is a 24-year-old male came in with complains of right flank pain. Patient was in any other yesterday for or dysuria fever urine cultures were obtained patient was discharged on Bactrim once she started taking Bactrim patient that started having nausea and vomiting because of which patient came to ER again. Patient was subsequently admitted for treatment of pallor nephritis. Patient was started on Rocephin. Patient urine from yesterday were significantly abnormal. Today's urine is significantly contaminated with squ amous epithelial cells. Patient does have leukocytosis and does have a costovertebral angle tenderness. REVIEW OF SYSTEMS: CONSTITUTIONAL: As mentioned in HPI HEENT: No recent visual problems or hearing problems. Denied any sore throat. CARDIOVASCULAR: No chest pain, orthopnea, PND, no palpitations, no syncope. PULMONARY: No shortness of breath, no cough, no hemoptysis. GASTROINTESTINAL: No diarrhea, no nausea, no vomiting, no abdominal pain. NEUROLOGICAL: No headaches, no weakness, no numbness. HEMATOLOGICAL: Denies any bleeding or petechiae. GENITOURINARY: As mentioned in HPI MUSCULOSKELETAL/RHEUMATOLOGICAL: Denies any joint pain, swelling, or any muscle pain. ENDOCRINE: Denies any polyuria or polydipsia. The rest of the 14-point review of systems is negative. PHYSICAL EXAMINATION: GENERAL: The patient is alert and oriented x3, not in any acute distress. Well developed, well nourished. HEENT: Pupils are round and equally reacting to light. EOMI. No scleral icterus. No conjunctival pallor. Normocephalic, atraumatic. No pharyngeal erythema. No thyromegaly. CARDIOVASCULAR: S1 and S2 present. No murmurs, rubs, or gallops. PULMONARY: Chest is clear to auscultation, no wheezing or crackles. ABDOMEN: Soft, patient does have a costovertebral angle tenderness nondistended, normoactive bowel sounds. No palpable organomegaly. MUSCULOSKELETAL: No joint swelling or deformity. EXTREMITIES: No cyanosis, clubbing, or pedal edema. NEUROLOGICAL: Gross neurological examination did not reveal any focal deficits. SKIN: No rashes. Assessment and plan -Sepsis and urinary tract infection secondary to pyelonephritis patient will revisit can you done empiric Rocephin awaiting urine cultures that were done from her previous ER visit. - hypovolemic hyponatremia continue with IV fluids -Sinus tachycardia secondary to sepsis expected to improve DVT prophylaxis: Early ambulation Past Medical History Past Medical History: No Reported History Additional Past Medical History / Comment(s): Ovarian cyst History of Any Multi-Drug Resistant Organisms: None Reported Past Surgical History: Tonsillectomy Additional Past Surgical History / Comment(s): [place] tooth extraction Past Anesthesia/Blood Transfusion Reactions: No Reported Reaction Smoking Status: Current every day smoker - Past Family History Mother Family Medical History: No Reported History Medications and Allergies Home Medications Medication Instructions Recorded Confirmed Type Ondansetron [Zofran ODT] 4 mg PO Q8HR PRN #15 tab 09/01/21 09/02/21 Rx Sulfamethox-Tmp 800-160Mg [Bactrim 1 tab PO Q12HR #28 tab 09/01/21 09/02/21 Rx DS 800-160 mg] Allergies Allergy/AdvReac Type Severity Reaction Status Date / Time No Known Allergies Allergy Verified 09/02/21 00:06 Physical Exam Vitals: Vital Signs Temp Pulse Pulse Resp BP BP Pulse Ox 09/02/21 14:07 97.7 F 120 H 20 127/77 99 09/02/21 10:20 98.1 F 108 H 18 116/82 98 09/02/21 06:07 100 17 105/69 96 09/02/21 00:02 99.0 F 105 H 20 126/70 99 Intake and Output 09/02/21 09/02/21 09/02/21 06:59 14:59 22:59 Other: # Voids 1 Weight 81.647 kg 81.8 kg Results CBC & Chem 7: 09/02/21 01:43 09/02/21 01:43 Labs: Abnormal Lab Results - Last 24 Hours (Table) 09/02/21 09/02/21 09/02/21 Range/Units 01:43 01:43 01:43 WBC 13.1 H (3.8-10.6) k/uL Neutrophils # 9.9 H (1.3-7.7) k/uL Sodium 131 L (137-145) mmol/L Carbon Dioxide 20 L (22-30) mmol/L BUN 5 L (7-17) mg/dL Glucose 117 H (74-99) mg/dL Alkaline Phosphatase 130 H (38-126) U/L Urine Appearance Cloudy H (Clear) Urine Protein 1+ H (Negative) Urine Blood Trace H (Negative) Ur Leukocyte Esterase Large H (Negative) Urine RBC 9 H (0-5) /hpf Urine WBC 133 H (0-5) /hpf Ur Squamous Epith Cells 45 H (0-4) /hpf Urine Bacteria Moderate H (None) /hpf Urine Mucus Rare H (None) /hpf Microbiology - Last 24 Hours (Table) 09/02/21 01:43 Urine Culture - Preliminary Urine,Voided Thrombosis Risk Factor Assmnt - Choose All That Apply Each Factor Represents 1 point: Obesity (BMI >25) Thrombosis Risk Factor Assessment Total Risk Factor Score: 1 Thrombosis Risk Factor Assessment Level: Low Risk
[2021-09-03] MEDS: HYDROmorphone 1 MG/ML 1 ML SYRINGE IVP PRN ×2 (00:27→10:36)
[2021-09-03] MEDS: SODIUM CHLORIDE 0.9% 1,000 ML IV SCH ×2 (03:48→08:32)
[2021-09-03 08:05] VITALS: RESP 18
[2021-09-03] MEDS: KETOROLAC 15 MG/ML 1 ML VIAL IVP PRN ×2 (08:29→14:44)
[2021-09-03] MEDS: PANTOPRAZOLE 40 MG/10 ML VIAL IV SCH (08:31)
[2021-09-03] MEDS ORDERED: FAMOTIDINE 20 MG/2 ML VIAL IV SCH (09:00)
[2021-09-03 09:38] LABS: Basophils # (A) 0.1 k/uL (0-0.2); Basophils % (A) 1 %; Eosinophils # (A) 0.1 k/uL (0-0.7); Eosinophils % (A) 1 %; HCT 38.9 % (34.0-46.0); HGB 12.6 gm/dL (11.4-16.0); Lymphocytes # (A) 1.6 k/uL (1.0-4.8); Lymphocytes % (A) 18 %; MCH 32.2 pg (25.0-35.0); MCHC 32.4 g/dL (31.0-37.0); Mean Platelet Volume 7.6; Monocytes # (A) 0.7 k/uL (0-1.0); Monocytes % (A) 8 %; Neutrophils % (A) 69 %; Platelet Count 283 k/uL (150-450); RBC 3.92 m/uL (3.80-5.40); RDW 13.2 % (11.5-15.5); WBC 8.7 k/uL (3.8-10.6)
[2021-09-03 09:41] LABS: MCV 99.3 fL (80.0-100.0)
[2021-09-03 09:45] LABS: African American GFR (CKD) >90 (>60 ml/min/1.73 sqM); Anion Gap 5 mmol/L; Blood Urea Nitrogen 4 mg/dL (7-17); Calcium 8.7 mg/dL (8.4-10.2); Carbon Dioxide 22 mmol/L (22-30); Chloride 108 mmol/L (98-107); Glucose 103 mg/dL (74-99); Non-African American GFR(CKD) >90 (>60 ml/min/1.73 sqM); Sodium 135 mmol/L (137-145)
[2021-09-03 09:51] LABS: Potassium 4.7 mmol/L (3.5-5.1)
--- NOTE | 2021-09-03 11:24 | P.PN ---
Subjective Progress Note Date: 09/03/21 Patient is a 24-year-old male came in with complains of right flank pain. Patient was in any other yesterday for or dysuria fever urine cultures were obtained patient was discharged on Bactrim once she started taking Bactrim patient that started having nausea and vomiting because of which patient came to ER again. Patient was subsequently admitted for treatment of pallor nephritis. Patient was started on Rocephin. Patient urine from yesterday were significantly abnormal. Today's urine is significantly contaminated with squamous epithelial cells. Patient does have leukocytosis and does have a co stovertebral angle tenderness. 09/03/2021 Patient is evaluated today resting in bed. She is still complaining of some flank pain worse on the right. Denies any fever or chills, denies nausea vomiti ng or diarrhea. She discussed day she is having some burning with urination. Laboratory white count 8.7, sodium 135. She is receiving IV Rocephin, Toradol and Dilaudid for pain management. Patient is afebrile, blood pressure 115/77. Urine culture is pending this admission. ER visit on September 01 urine culture shows gram-negative bacilli microsensitivities are pending. Patient states that she does have frequent urinary tract infections at least once a year. We will anticipate discharge tomorrow. ROS Constitutional: Denied any fatigue denied any fever. Cardio vascular: denied any chest pain, palpitations Gastrointestinal denied any nausea vomiting, denies diarrhea : Reports burning, denies urgency, frequency Pulmonary: Denied any shortness of breath cough Neurologic denied any new focal deficits All inpatient medications were reviewed and appropriate changes in these medications as dictated in the interval history and assessment and plan. PHYSICAL EXAMINATION: GENERAL: The patient is alert and oriented x3, not in any acute distress. Well developed, well nourished. HEENT: Pupils are round and equally reacting to light. EOMI. No scleral icterus. No conjunctival pallor. Normocephalic, atraumatic. No pharyngeal erythema. No thyromegaly. CARDIOVASCULAR: S1 and S2 present. No murmurs, rubs, or gallops. PULMONARY: Chest is clear to auscultation, no wheezing or crackles. ABDOMEN: Soft, patient does have a costovertebral angle tenderness nondistended, normoactive bowel sounds. No palpable organomegaly. MUSCULOSKELETAL: No joint swelling or deformity. EXTREMITIES: No cyanosis, clubbing, or pedal edema. NEUROLOGICAL: Gross neurological examination did not reveal any focal deficits. SKIN: No rashes. Assessment and plan -Sepsis and urinary tract infection secondary to pyelonephritis, on empiric IV rocephin, pending cultures. - hypovolemic hyponatremia continue with IV fluids -Sinus tachycardia secondary to sepsis, improved DVT prophylaxis: Early ambulation Objective - Vital Signs Vital signs: Vital Signs Temp 97.8 F 09/03/21 07:52 Pulse 92 09/03/21 07:52 Resp 18 09/03/21 07:52 BP 115/77 09/03/21 07:52 Pulse Ox 98 09/03/21 07:52 Intake & Output 09/02/21 09/03/21 09/03/21 18:59 06:59 18:59 Intake Total 1780 Output Total 400 1400 800 Balance -400 380 -800 Weight 81.8 kg Intake: Intake, IV Titration 1000 Amount Sodium Chloride 0.9% 1, 1000 000 ml @ 100 mls/hr IV . [facility]H [facility] Rx#:[id number] Oral 780 Output: Urine 400 1400 800 Other: Voiding Method Toilet Toilet # Voids 1 - Labs CBC & Chem 7: 09/03/21 09:02 09/03/21 09:02 Labs: Abnormal Lab Results - Last 24 Hours (Table) 09/03/21 Range/Units 09:02 Sodium 135 L (137-145) mmol/L Chloride 108 H (98-107) mmol/L BUN 4 L (7-17) mg/dL Glucose 103 H (74-99) mg/dL Microbiology - Last 24 Hours (Table) 09/02/21 01:43 Urine Culture - Preliminary Urine,Voided Assessment and Plan Time with Patient: Greater than 30
[2021-09-03 14:07] VITALS: BP 106/78; PULSE 78; TEMP 98.6
--- NOTE | 2021-09-03 14:31 | P.DS ---
Providers Date of admission: 09/02/21 02:38 Attending physician: Galo Cohen Primary care physician: Kayleigh Washington Hospital Course: Final Diagnosis -Sepsis and urinary tract infection secondary to pyelonephritis, pending cultures - hypovolemic hyponatremia continue with IV fluids -Sinus tachycardia secondary to sepsis, improved Discharge disposition Patient is stable medically for discharge on oral antibiotics. We'll recheck cultures tomorrow and make appropriate changes as needed. Hospital course This is a pleasant 30-year-old female that came in to the [facility] 2 days ago initially with complaints of right flank pain as well as dysuria, fever. Urine cultures were obtained. She was discharged on oral Bactrim from the [facility], physical, she started having nausea and vomiting and came to the ER again. This time she was admitted for treatment of pyelonephritis. She was started on IV Rocephin, repeat cultures were taken. Urine from yesterday with significant family abnormal, urine repeat this admission was contaminated with squamous epithelial cells. Patient with leukocytosis and tenderness to the right costovertebral angle. Today she is still complaining of some flank pain worsening right however her white count is down to 8.7. She is receiving Toradol and Dilaudid for pain management. She is afebrile blood pressures are better at 115/77, heart rate is in the 90s sinus rhythm. Patient wants to be discharged home today. We will discharge her on oral Ceftin 500 mg by mouth twice a day for 7 days. Past medical history significant for an ovarian cyst, tonsillectomy, she is a current every day smoker. 09/03/2021 Patient denies any nausea vomiting or diarrhea today. She denies any cough, chest pain, shortness of breath. Focal neurological symptoms negative. She does have some tenderness to the right CVA. She states that she would like to be discharged home. Will treat with oral antibiotics and follow up on her cultures. Please see medication reconciliation for a list of current medications. Thank you for allowing us to participate in the care of this patient. Patient Condition at Discharge: Fair Plan - Discharge Summary New Discharge Prescriptions: New Cefuroxime Axetil [Ceftin] 500 mg PO BID 7 Days #14 tab Acetaminophen Tab [Tylenol] 650 mg PO Q6HR PRN tab PRN Reason: Mild Pain Or Fever > 100.5 HYDROcodone/APAP 5-325MG [[place] 5] 1 each PO Q6HR PRN 2 Days #8 tab PRN Reason: Pain Continue Ondansetron [Zofran ODT] 4 mg PO Q8HR PRN #15 tab PRN Reason: Nausea Discontinued Sulfamethox-Tmp 800-160Mg [Bactrim DS 800-160 mg] 1 tab PO Q12HR #28 tab Discharge Medication List Ondansetron [Zofran ODT] 4 mg PO Q8HR PRN #15 tab 09/01/21 [Rx] Acetaminophen Tab [Tylenol] 650 mg PO Q6HR PRN tab 09/03/21 [Rx] Cefuroxime Axetil [Ceftin] 500 mg PO BID 7 Days #14 tab 09/03/21 [Rx] HYDROcodone/APAP 5-325MG [[place] 5] 1 each PO Q6HR PRN 2 Days #8 tab 09/03/21 [Rx] Follow up Appointment(s)/Referral(s): Felix Victor MD [Primary Care Provider] - 1-2 days Discharge Disposition: HOME SELF-CARE
== END 2021-09-03 15:10 | disposition home or self-care (01) ==
LOC: EC 23:59 → 6NMEDSUR 09-02 02:38 → 6PED 09-02 09:45
PROVIDERS: ADMIT Hospitalist; ATTEND Hospitalist
DX: A41.9 Sepsis, unspecified organism (principal); N10 Acute pyelonephritis; R00.0 Tachycardia, unspecified; Z20.822 Contact with and (suspected) exposure to COVID-19; E86.1 Hypovolemia; E87.1 Hypo-osmolality and hyponatremia; F17.200 Nicotine dependence, unspecified, uncomplicated; N83.209 Unspecified ovarian cyst, unspecified side; E66.9 Obesity, unspecified; Z68.31 Body mass index [BMI] 31.0-31.9, adult; Z87.440 Personal history of urinary (tract) infections
CPT/HCPCS: 99284; 96376 ×3; 96361 ×2; 96366; 96375 ×3; 96365; 36415; 80053; 80048; 83605; 83690; 85025 ×2; 81001; 81025; 87086; 87635; G0378 ×2; J2405; J0696 ×2; J1170 ×2; J1885 ×2; C9113 ×2